=== PATIENT | male | born 2000 | race Caucasian/White ===

== ENCOUNTER 2020-09-03 16:12 | Emergency (ER) | payer OTHER ==
--- NOTE | 2020-09-03 17:06 | ER Document Report ---
ED Respiratory Problem - General Chief Complaint: Flu Symptoms Stated Complaint: HEADACHE,COUGH,CONGESTION Time Seen by Provider: 09/03/20 16:46 Primary Care Provider: DC AC MD [ACTIVE STAFF] - Follow up as needed Mode of Arrival: Ambulatory Information source: Patient Notes: 19-year-old male presents to the emergency room complaining of a generalized headache with sinus congestion and a cough for the past 2 weeks. States he started. Denies any head trauma head injury. Denies any history of migraines. Denies worst headache of his life. Denies any sudden thunderclap. States headache does not keep him awake at night. States that symptoms have worsened over the past 2 days. States his employer sent him in for Covid testing and evaluation of his symptoms. He denies any recent travel. He denies any known COVID-19 exposure. States he is not been taking any medications for his symptoms. TRAVEL OUTSIDE OF THE [place] IN LAST 30 DAYS: No - Related Data Allergies/Adverse Reactions: No Known Allergies Allergy (Verified 09/03/20 16:28) Past Medical History - General Information source: Patient - Social History Smoking Status: Never Smoker Frequency of alcohol use: Occasional Drug Abuse: None Family History: Reviewed & Not Pertinent Patient has homicidal ideation: No Review of Systems - Review of Systems Constitutional: No symptoms reported EENT: Nose congestion, Sinus pressure Cardiovascular: No symptoms reported Respiratory: Cough. denies: Short of breath, Wheezing Musculoskeletal: No symptoms reported Skin: No symptoms reported Neurological/Psychological: Headaches -: Yes All other systems reviewed and negative Physical Exam - Vital signs Vitals: Temp Pulse Resp BP Pulse Ox 99.6 F 111 H 20 116/84 100 09/03/20 16:17 09/03/20 16:17 09/03/20 16:17 09/03/20 16:17 09/03/20 16:17 - General General appearance: Appears well, Alert In distress: Mild - HEENT Head: Normocephalic, Atraumatic Eyes: Normal Pupils: PERRL External canal: Normal Tympanic membrane: Retracted - Tympanic membrane's bilaterally are dull and retracted with clear fluid noted behind the TMs bilaterally Sinus: Frontal Nasal: Purulent discharge Mucous membranes: Normal Pharynx: Normal Neck: Normal Notes: There is no photophobia noted bilaterally. - Respiratory Respiratory status: No respiratory distress Chest status: Nontender Breath sounds: Normal Chest palpation: Normal - Cardiovascular Rhythm: Tachycardia Heart sounds: Normal auscultation Murmur: No - Neurological Neuro grossly intact: Yes Cognition: Normal Orientation: AAOx4 [place] Coma Scale Eye Opening: Spontaneous [place] Coma Scale Verbal: Oriented [place] Coma Scale Motor: Obeys Commands [place] Coma Scale Total: 15 Speech: Normal Motor strength normal: LUE, RUE, LLE, RLE Sensory: Normal - Skin Skin Temperature: Warm Skin Moisture: Dry Skin Color: Normal Course - Re-evaluation Re-evalutation: 09/03/20 18:01 Reviewed negative x-ray results with patient. Discussed findings consistent with acute sinusitis with symptoms x2 weeks, patient is allergic to penicillin will be discharged home on doxycycline for his sinusitis since he is allergic to penicillin. Patient was evaluated during the global COVID-19 pandemic and that diagnosis was suspected/considered upon their initial presentation. Their evaluation, treatment and testing was consistent with current guidelines for patients who presents with complaints or systems that may be related to COVID-19. It is required that you self quarantine for the next 14 days or until you get a negative Covid test. Outpatient follow-up with a primary care physician if not improving in 2 to 3 days. On-call physician was provided. Patient was given strict return to the emergency room guidelines. Return for any new or worsening symptoms. All questions were answered. Patient verbalized understanding and agrees with plan of care. 09/03/20 18:02 - Vital Signs Vital signs: Temp Pulse Resp BP Pulse Ox 99.0 F 92 17 116/68 98 09/03/20 18:16 09/03/20 18:16 09/03/20 18:16 09/03/20 18:16 09/03/20 18:16 - Diagnostic Test Radiology reviewed: Reports reviewed Discharge - Discharge Clinical Impression: Viral respiratory illness, Person under investigation for COVID-19 Acute sinusitis Qualifiers: Sinusitis location: frontal Recurrence: non-recurrent Qualified Code(s): J01.10 - Acute frontal sinusitis, unspecified Condition: Stable Disposition: HOME, SELF-CARE Instructions: COVID-19 Guidance for Persons Under Investigation, Sinusitis ([facility]) Additional Instructions: Take medications as prescribed. Tylenol and or Motrin as needed. You are required to self quarantine for 14 days or to get a negative COVID-19 test. Outpatient follow-up with primary care physician if not improving in 2 to 3 days. Prescriptions: Doxycycline Monohydrate 100 mg PO BID #14 capsule Forms: Return to Work Referrals: DC CA MD [ACTIVE STAFF] - Follow up as needed
--- NOTE | 2020-09-03 17:19 | RADIOLOGY REPORT (SQ) ---
EXAM DESCRIPTION: CHEST SINGLE VIEW IMAGES COMPLETED DATE/TIME: 09/03/2020 3:59 pm REASON FOR STUDY: cough COMPARISON: None. EXAM PARAMETERS: NUMBER OF VIEWS: One view. TECHNIQUE: Single frontal radiographic view of the chest acquired. RADIATION DOSE: NA LIMITATIONS: None. FINDINGS: LUNGS AND PLEURA: No opacities, masses or pneumothorax. No pleural effusion. MEDIASTINUM AND HILAR STRUCTURES: No masses. Contour normal. HEART AND VASCULAR STRUCTURES: Heart normal in size. Normal vasculature. BONES: No acute findings. HARDWARE: None in the chest. OTHER: No other significant finding. IMPRESSION: NO ACUTE RADIOGRAPHIC FINDING IN THE CHEST. TECHNICAL DOCUMENTATION: JOB ID: [id number] [employer]- All Rights Reserved Reading location - IP/workstation name: [email or web address]
[2020-09-03 18:18] VITALS: BP 116/68
== END 2020-09-03 18:28 | disposition home or self-care (01) ==
LOC: ER 16:12
DX: J01.10 Acute frontal sinusitis, unspecified (principal); J98.8 Other specified respiratory disorders; B97.89 Other viral agents as the cause of diseases classified elsewhere; R51.9 Headache, unspecified; R05 Cough; R09.81 Nasal congestion; Z88.0 Allergy status to penicillin; Z20.828 Contact with and (suspected) exposure to other viral communicable diseases
CPT/HCPCS: 99284; 87635; 71045; C9803